=== PATIENT | male | born 1970 | race Caucasian/White ===

== ENCOUNTER 2021-07-15 13:25 | Inpatient (IN) ==
--- NOTE | 2021-07-15 14:49 | DR.GENAD ---
HPI Time Seen Time Seen by Provider: 07/15/21 14:13 PCP Primary Care Physician: EZIO Complaint/Symptoms Chief Complaint Doctors Comments: 50 y/o male tested + for Covid 4 days ago. Has been ill for 8 days. Feeling worse. Having cough, productive of slight white sputum. + diffuse body aches. + shortness of breath, worse with exertion. + fever, chills. No vaccines. was treated with a zpak. Chief Complaint:: PATIENT CAME TO ER REPORTS TESTING POSITIVE FOR COVID ON FRIDAY, WORSENING TODAY. PATIENT CURRENTLY TAKING VIT C, ZINC, MELATONIN, FLONASE, LOW DOSE ASPIRIN COVID-19 Coronavirus risk:travel/contact w/high risk person: Yes Has patient experienced Coronavirus symptoms: Yes Coronavirus symptoms experienced: Fever, Coughing and Shortness of Breath Nurses notes reviewed Nurses Notes Review: Yes Source History Provided: Patient Mode of Arrival Mode of Arrival: Ambulatory Timing Onset of Chief Complaint: 07/08/21 Came on: Gradually Duration Duration: Since Onset How lon Duration: Days Severity Severity: Moderate Modifying Factors Worsens:: exertion Improves:: nothing PMH PMH Past Medical History: No Past Surgical History: Yes Past Surgical History Comment: BILATERAL LEGS FOR FX, RIGHT ROTATOR CUFF Family History History of Family Medical Conditions: No Travel Risk Coronavirus risk:travel/contact w/high risk person: Yes Has patient experienced Coronavirus symptoms: Yes Coronavirus symptoms experienced: Fever, Coughing and Shortness of Breath Infectious screening In the last 2 months have you had wt loss of >10#?: NO Have you had fever, night sweats or hemotysis?: No Have you traveled outside the country in the last 6 months?: No Isolation: Standard ROS Review of Systems Constitutional: Chills, Fever, Malaise and Weakness Eyes: No Symptoms Reported ENTM: No Symptoms Reported Respiratoy: Productive Cough and Short of Breath Cardiovascular: No Symptoms Reported Gastrointestinal/Abdominal: No Symptoms Reported Genitourinary: No Symptoms Reported Neurological: Headache and Weakness Musculoskeletal: Muscle Pain Integumentary: No Symptoms Reported Hematologic/Lymphatic: No Symptoms Reported Endocrine: No Symptoms Reported Psychiatric: No Symptoms Reported All Other Systems: Reviewed and Negative PE Vital Signs Vitals: Temperature 98.8 F Pulse Rate [Left Brachial] 85 Pulse Rate 115 Respiratory Rate 20 Blood Pressure [Left Arm] 97/56 Blood Pressure 128/83 O2 Sat by Pulse Oximetry 97 General Limitations: No Limitations General Appearance: Alert and In Distress Head Head Exam: Normal Inspection Eyes Eye exam: Normal Appearance ENT ENT Exam: Normal Exam Throat Exam: Normal Inspection Neck Neck Exam: Normal Inspection and Full ROM; negative Meningismus Chest Chest Inspection: Normal Inspection Respiratory Respiratory Exam: Normal Lung Sounds Bilat and Accessory Muscle Use; negative Respiratory Distress Respiratory Exam: Bilateral: Clear to Auscultation Cardiovascular Cardiovascular Exam: Regular Rate, Normal Rhythm and Normal Heart Sounds Abdominal Exam Abdominal Exam: Normal Inspection and Normal Bowel Sounds; negative Tenderness Extremities Extremities Exam: Normal Inspection and Full ROM; negative Edema Back Back Exam: Normal Inspection Neurologic Neurological Exam: Alert, Oriented X3 and CN II-XII Intact; negative Motor Sensory Deficit Psychiatric Psychiatric Exam: Normal Affect Skin Skin Exam: Warm MDM Differential Diagnosis Differential Diagnosis: covid pneumonia, bacterial pneumonia, electrolyte abnormalities COURSE Treatment Treatment: 50 y/o male ill with covid x 8 days, feeling worse. Pulse ox 93% on RA. W/u initiated. 1920 - Pt with covid pneumonia on CXR. Is hypoxic on RA, ABG shows degree of acidosis, pH 7.29, and a low pO2 at 67, with a pulse ox of 90%. Doing better on O2. Recommend admission, discussed with Dr. Fong, accepts the admission. ROR Labs Reviewed Laboratory Results Reviewed?: Yes Result Diagrams: 07/15/21 15:52 07/15/21 15:52 Laboratory: WBC 6.2 X10^3/uL (3.6-10.0) 07/15/21 15:52 RBC 4.61 X10^6/uL (4.7-6.0) L 07/15/21 15:52 Hgb 14.5 g/dL (13.5-18.0) 07/15/21 15:52 Hct 41.8 % (42.0-54.0) L 07/15/21 15:52 MCV 90.6 fL (80.0-100.0) 07/15/21 15:52 MCH 31.4 pg (27.0-34.0) 07/15/21 15:52 MCHC 34.7 g/dL (33.0-35.0) 07/15/21 15:52 RDW 12.8 % (11.6-16.5) 07/15/21 15:52 Plt Count 158 X10^3/uL (150.0-450.0) 07/15/21 15:52 MPV 9.1 fL (7.4-11.0) 07/15/21 15:52 Neut % (Auto) 75.0 % (42.0-75.0) 07/15/21 15:52 Lymph % (Auto) 17.7 % (21.0-51.0) L 07/15/21 15:52 [place] % (Auto) 6.7 % (0.0-13.0) 07/15/21 15:52 Eos % (Auto) 0.1 % (0.9-2.9) L 07/15/21 15:52 Baso % (Auto) 0.5 % (0.2-1.0) 07/15/21 15:52 Neut # (Auto) 4.6 x10^3/uL (2.2-4.8) 07/15/21 15:52 Lymph # (Auto) 1.1 X10^3/uL (1.3-2.9) L 07/15/21 15:52 [place] # (Auto) 0.4 x10^3/uL (0.3-0.8) 07/15/21 15:52 Eos # (Auto) 0.0 x10^3/uL (0.0-0.2) 07/15/21 15:52 Baso # (Auto) 0.0 X10^3/uL (0.0-0.1) 07/15/21 15:52 Absolute Nucleated RBC 0.1 /100WBC 07/15/21 15:52 Sample Site Left brachial 07/15/21 16:58 ABG pH 7.290 (7.35-7.45) L 07/15/21 16:58 ABG pCO2 33.0 mmHg (35.0-45.0) L 07/15/21 16:58 ABG pO2 67.0 mmHg (80.0-100.0) L 07/15/21 16:58 ABG HCO3 15.9 mmol/L (22-26) L* 07/15/21 16:58 ABG O2 Saturation 90.0 % (90-100) 07/15/21 16:58 ABG Base Excess -9.7 mmol/L (-2.0-2.0) L 07/15/21 16:58 Hany Test Na 07/15/21 16:58 A-a Gradient 41.0 mmHg 07/15/21 16:58 FiO2 21.0 07/15/21 16:58 Blood Gas Comments Marianna well aw 07/15/21 16:58 Sodium 134 mmol/L (136-145) L 07/15/21 15:52 Corrected Sodium 135 mmol/L (136-145) L 07/15/21 15:52 Potassium 4.0 mmol/L (3.5-5.1) 07/15/21 15:52 Chloride 97 mmol/L (98-107) L 07/15/21 15:52 Carbon Dioxide 30.1 mmol/L (21-32) 07/15/21 15:52 BUN 10 mg/dL (7-18) 07/15/21 15:52 Creatinine 1.16 mg/dL (0.70-1.30) 07/15/21 15:52 Est GFR (MDRD) Af Amer > 60 (>60) 07/15/21 15:52 Est GFR (MDRD) Non-Af > 60 (>60) 07/15/21 15:52 Glucose 126 mg/dL (65-99) H 07/15/21 15:52 Calcium 7.9 mg/dL (8.5-10.1) L 07/15/21 15:52 Corrected Calcium 8.9 mg/dL (8.5-10.1) 07/15/21 15:52 Total Bilirubin 0.40 mg/dL (0.2-1.0) 07/15/21 15:52 AST 48 Units/L (15-37) H 07/15/21 15:52 ALT 33 Units/L (12-78) 07/15/21 15:52 Alkaline Phosphatase 62 Units/L (46-116) 07/15/21 15:52 Creatine Kinase 104 Units/L (39-308) 07/15/21 15:52 CK-MB (CK-2) < 1.0 ng/mL (0-4.0) 07/15/21 15:52 CK/CKMB % Calc 1.0 % (<4) 07/15/21 15:52 Troponin I < 0.02 ng/mL (0-1.5) 07/15/21 15:52 Total Protein 7.2 g/dL (6.4-8.2) 07/15/21 15:52 Albumin 2.8 g/dL (3.4-5.0) L 07/15/21 15:52 Globulin 4.4 g/dL (2.5-4.5) 07/15/21 15:52 Albumin/Globulin Ratio 0.6 Ratio (1.1-2.1) L 07/15/21 15:52 SARS CoV-2 RNA Rapid GUILLERMO Positive (NEGATIVE) A 07/15/21 16:47 XRAY XRAY Interpreted by: Radiologist X-ray Results: + changes c/w early viral pneumonia EKG Rate: 91 [place]: Normal Rhythm: NSR Block: IVCD (LAFB) Hypertrophy: LAE ST: Normal Opioid Opioid Risk Tool Age (Dio box if 16-45): No History of Preadolescent Sexual Abuse: No Total: 0 Total Score Risk Category: Low Risk Copyright: Alejo SILVA predicting aberrant behaviors Diagnosis Discharge Problem: Pneumonia due to COVID-19 virus, Hypoxia
[2021-07-15] MEDS ORDERED: NS 1000 ML 1,000 ML IV ONE (15:43)
[2021-07-15] MEDS ORDERED: TORADOL 30 MG VIAL IVP ONE (15:44)
[2021-07-15] MEDS ORDERED: NS 1000 ML 1,000 ML ONE ×2 (15:55→20:02)
[2021-07-15] MEDS ORDERED: TORADOL 30 MG VIAL ONE (15:55)
[2021-07-15 16:00] LABS: BASOPHILS % (AUTO) 0.5 % (0.2-1.0); EOSINOPHILS % (AUTO) 0.1 % (0.9-2.9); HEMATOCRIT 41.8 % (42.0-54.0); HEMOGLOBIN 14.5 g/dL (13.5-18.0); LYMPHOCYTES # (AUTO) 1.1 X10^3/uL (1.3-2.9); LYMPHOCYTES % (AUTO) 17.7 % (21.0-51.0); MEAN CORPUSCULAR HEMOGLOBIN 31.4 pg (27.0-34.0); MEAN CORPUSCULAR HGB CONC 34.7 g/dL (33.0-35.0); MEAN CORPUSCULAR VOLUME 90.6 fL (80.0-100.0); MEAN PLATELET VOLUME 9.1 fL (7.4-11.0); MONOCYTES # (AUTO) 0.4 x10^3/uL (0.3-0.8); MONOCYTES % (AUTO) 6.7 % (0.0-13.0); NEUTROPHILS # (AUTO) 4.6 x10^3/uL (2.2-4.8); PLATELET COUNT 158 X10^3/uL (150.0-450.0); RED BLOOD COUNT 4.61 X10^6/uL (4.7-6.0); RED CELL DISTRIBUTION WIDTH 12.8 % (11.6-16.5); WHITE BLOOD COUNT 6.2 X10^3/uL (3.6-10.0)
--- NOTE | 2021-07-15 16:13 | RAD ---
HISTORYcovid, body aches, sobSTUDYCHEST, 1 VIEWCOMPARISONNone availableTECHNIQUEChest radiographic imaging, AP portable projection, 1 imageFINDINGSNo cardiomegaly.Bilateral diffuse airspace opacities; most significant along the peripheral margins of both lungs.No pleural effusion.No pneumothorax.No acute osseous abnormality.IMPRESSIONBilateral diffuse airspace opacities; most significant along the peripheral margins of both lungs. Findings are consistent with the sequela of a COVID-19 respiratory infection.Electronically signed by: Francisco Lindsay (Jul 15, 2021 16:10:56)
[2021-07-15 16:33] LABS: ALANINE AMINOTRANSFERASE 33 Units/L (12-78); ALBUMIN 2.8 g/dL (3.4-5.0); ALKALINE PHOSPHATASE 62 Units/L (46-116); ASPARTATE AMINO TRANSFERASE 48 Units/L (15-37); BLOOD UREA NITROGEN 10 mg/dL (7-18); CALCIUM 7.9 mg/dL (8.5-10.1); CARBON DIOXIDE 30.1 mmol/L (21-32); CHLORIDE 97 mmol/L (98-107); COR CA(FOR HYPOALB) 8.9 mg/dL (8.5-10.1); COR NA(FOR HYPERGLY) 135 mmol/L (136-145); CREATINE KINASE 104 Units/L (39-308); CREATINE KINASE MB < 1.0 ng/mL (0-4.0); CREATININE 1.16 mg/dL (0.70-1.30); SODIUM 134 mmol/L (136-145); TOTAL PROTEIN 7.2 g/dL (6.4-8.2); TROPONIN I < 0.02 ng/mL (0-1.5); eGFR NON BLACK RACES > 60 (>60)
--- NOTE | 2021-07-15 16:37 | RAD ---
HISTORYstool incontinenceSTUDYKUBCOMPARISONNoneTECHNIQUEAP supine projection, 3 imagesFINDINGSGas and stool in non -distended colon.Gas in scattered loops of non-distended small bowel in the left abdomen.No gross andrew e air.No abnormal calcifications.No acute osseous abnormality.IMPRESSION1. No acute intra-abdominal a bnormality detected.2. No significant stool burden in the colon.Electronically signed by: Francisco ramires (Jul 15, 2021 16:34:18)
[2021-07-15 17:03] LABS: ABG BASE EXCESS -9.7 mmol/L (-2.0-2.0)
[2021-07-15 17:04] LABS: ABG HCO3 15.9 mmol/L (22-26)
[2021-07-15] MEDS ORDERED: REMDESIVIR 200 MG in NS 250 ML IV 250 ML IV ONE (19:57)
[2021-07-15] MEDS ORDERED: NS 250 ML IV 250 ML IV ONE (20:02)
[2021-07-15] MEDS ORDERED: REMDESIVIR IV ONE (20:02)
[2021-07-15] MEDS: NS 1000 ML 1,000 ML IV SCH (20:10)
[2021-07-15] MEDS: ZINC SULFATE PO SCH (21:00)
[2021-07-15] MEDS: SOLU-Medrol 40 MG VIAL IVP SCH (21:00)
[2021-07-15] MEDS: LOVENOX INJ 30 MG SYR SC SCH (21:00)
[2021-07-15] MEDS: PEPCID TAB 40 MG PO SCH (21:00)
[2021-07-15] MEDS: VIBRAMYCIN PO SCH (21:00)
[2021-07-15 21:02] LABS: BASOPHILS % (AUTO) 0.5 % (0.2-1.0); EOSINOPHILS % (AUTO) 0.1 % (0.9-2.9); HEMATOCRIT 37.4 % (42.0-54.0); LYMPHOCYTES # (AUTO) 1.7 X10^3/uL (1.3-2.9); MEAN CORPUSCULAR HEMOGLOBIN 31.8 pg (27.0-34.0); MEAN CORPUSCULAR HGB CONC 34.7 g/dL (33.0-35.0); MEAN CORPUSCULAR VOLUME 91.7 fL (80.0-100.0); MEAN PLATELET VOLUME 9.3 fL (7.4-11.0); MONOCYTES # (AUTO) 0.5 x10^3/uL (0.3-0.8); MONOCYTES % (AUTO) 8.3 % (0.0-13.0); NEUTROPHILS # (AUTO) 3.7 x10^3/uL (2.2-4.8); NEUTROPHILS % (AUTO) 63.1 % (42.0-75.0); PLATELET COUNT 143 X10^3/uL (150.0-450.0); RED BLOOD COUNT 4.07 X10^6/uL (4.7-6.0); WHITE BLOOD COUNT 5.9 X10^3/uL (3.6-10.0)
[2021-07-15 21:12] LABS: ALANINE AMINOTRANSFERASE 28 Units/L (12-78); ALBUMIN 2.4 g/dL (3.4-5.0); ALKALINE PHOSPHATASE 54 Units/L (46-116); ASPARTATE AMINO TRANSFERASE 41 Units/L (15-37); BLOOD UREA NITROGEN 14 mg/dL (7-18); CALCIUM 7.3 mg/dL (8.5-10.1); CARBON DIOXIDE 27.9 mmol/L (21-32); CHLORIDE 98 mmol/L (98-107); COR CA(FOR HYPOALB) 8.6 mg/dL (8.5-10.1); COR NA(FOR HYPERGLY) 136 mmol/L (136-145); CREATININE 1.41 mg/dL (0.70-1.30); SODIUM 133 mmol/L (136-145); TOTAL PROTEIN 6.1 g/dL (6.4-8.2); TROPONIN I < 0.02 ng/mL (0-1.5); eGFR NON BLACK RACES 57 (>60)
[2021-07-15 21:43] VITALS: BMI 33.7
[2021-07-15] MEDS: BROVANA IN SCH (21:45)
[2021-07-15] MEDS: PULMICORT NEB TX 0.5 MG NEB SCH (21:45)
[2021-07-15] MEDS: ASCORBIC ACID INJ MULTI-DOSE VIAL 1,500 MG in NS 100 ML IV 100 ML IV SCH (23:00)
[2021-07-15] MEDS ORDERED: RESTORIL CAP 15 MG PO PRN (23:38)
[2021-07-16] MEDS: ASCORBIC ACID INJ MULTI-DOSE VIAL 1,500 MG in NS 100 ML IV 100 ML IV SCH ×4 (04:05→20:33)
[2021-07-16 06:24] LABS: BASOPHILS % (AUTO) 0.1 % (0.2-1.0); HEMATOCRIT 37.3 % (42.0-54.0); HEMOGLOBIN 13.1 g/dL (13.5-18.0); LYMPHOCYTES # (AUTO) 0.4 X10^3/uL (1.3-2.9); LYMPHOCYTES % (AUTO) 14.5 % (21.0-51.0); MEAN CORPUSCULAR HEMOGLOBIN 31.7 pg (27.0-34.0); MEAN CORPUSCULAR HGB CONC 35.1 g/dL (33.0-35.0); MEAN CORPUSCULAR VOLUME 90.3 fL (80.0-100.0); MEAN PLATELET VOLUME 9.6 fL (7.4-11.0); MONOCYTES # (AUTO) 0.1 x10^3/uL (0.3-0.8); MONOCYTES % (AUTO) 4.8 % (0.0-13.0); NEUTROPHILS # (AUTO) 2.3 x10^3/uL (2.2-4.8); NEUTROPHILS % (AUTO) 80.6 % (42.0-75.0); PLATELET COUNT 159 X10^3/uL (150.0-450.0); RED BLOOD COUNT 4.13 X10^6/uL (4.7-6.0); RED CELL DISTRIBUTION WIDTH 12.9 % (11.6-16.5); WHITE BLOOD COUNT 2.9 X10^3/uL (3.6-10.0)
[2021-07-16] MEDS: SOLU-Medrol 40 MG VIAL IVP SCH ×3 (06:25→21:45)
[2021-07-16 06:56] LABS: ALANINE AMINOTRANSFERASE 34 Units/L (12-78); ALBUMIN 2.6 g/dL (3.4-5.0); ALKALINE PHOSPHATASE 59 Units/L (46-116); ASPARTATE AMINO TRANSFERASE 45 Units/L (15-37); BLOOD UREA NITROGEN 12 mg/dL (7-18); CALCIUM 7.6 mg/dL (8.5-10.1); CARBON DIOXIDE 25.5 mmol/L (21-32); CHLORIDE 101 mmol/L (98-107); COR CA(FOR HYPOALB) 8.7 mg/dL (8.5-10.1); COR NA(FOR HYPERGLY) 140 mmol/L (136-145); CREATININE 1.09 mg/dL (0.70-1.30); SODIUM 136 mmol/L (136-145); TOTAL PROTEIN 6.7 g/dL (6.4-8.2); eGFR NON BLACK RACES > 60 (>60)
[2021-07-16] MEDS ORDERED: VITAMIN D (1.25MG) PO SCH (09:00)
[2021-07-16] MEDS ORDERED: VITAMIN A PO SCH (09:00)
[2021-07-16] MEDS: BROVANA IN SCH ×2 (09:00→20:59)
[2021-07-16] MEDS: PULMICORT NEB TX 0.5 MG NEB SCH ×2 (09:00→20:59)
[2021-07-16] MEDS: PEPCID TAB 40 MG PO SCH ×2 (09:32→20:35)
[2021-07-16] MEDS: ZINC SULFATE PO SCH ×2 (09:32→20:36)
[2021-07-16] MEDS: LOVENOX INJ 30 MG SYR SC SCH ×2 (09:32→20:35)
[2021-07-16] MEDS: VIBRAMYCIN PO SCH ×2 (09:33→20:34)
[2021-07-16] MEDS: TRICOR TAB 160 MG PO SCH (09:33)
--- NOTE | 2021-07-16 11:01 | RAD ---
HISTORYCOVID-19 pneumoniaSTUDYPortable AP [id number] normal heart size and contour with similar degree and dist ribution of bilateral pneumonic infiltrates. No additional consolidation, pneumothorax or pleural flu id identified.IMPRESSIONStable appearance of bilateral pneumonia.Electronically signed by: CHERISE MOREIRA (Jul 16, 2021 11:00:22)
[2021-07-16] MEDS ORDERED: NS 100 ML IV 100 ML ONE (12:49)
--- NOTE | 2021-07-16 13:41 | CT ---
HISTORYCOVID PNEUMONIA, SOB, ELEVATED D-DIMERSTUDYCTA CHESTCOMPARISONChest radiograph 07/16/2021TECHNIQUEMultiple CT axial images of the chest were obtained with IV contrast. Coronal and sagittal images were reconstructed. 3D reconstructions using axial MIPS imaging was performed and reviewed. Dose reduction techniques included Automated Exposure Control (AEC) and adjustment of mA and kV.Stenoses are measured using NASCET criteria.FINDINGSPulmonary arteries are identified to subsegmental branches. There are no pulmonary emboli.The heart is normal in size. Atherosclerotic calcifications are present in the coronary arteries. The pulmonary artery and aorta have a normal caliber. Mediastinal lymphadenopathy is likely reactive from the patient's lung disease.The thyroid has a normal size and configuration. No axillary mass or significant axillary lymphadenopathy is identified.Patchy bilateral areas of ground-glass opacity are present compatible with bronchopneumonia. No pleural effusion or pneumothorax.There is a focal area of increased density in the upper left abdomen which may be edema. This is centered around left adrenal gland. Few small lymph nodes are noted in the upper abdomen also. These may be reactive. The finding is nonspecific and could be chronic. But it is not centered around the pancreas like pancreatitis. Not centered around the kidney like pyelonephritis. In an acute setting it could be minimal adrenal hemorrhage if the patient has this history.Degenerative changes are present in the spine.IMPRESSION1. No pulmonary embolus2. Bronchopneumonia3. Nonspecific edema in the upper left abdomen, centered around the adrenal glandElectronically signed by: Ayaan Galloway (Jul 16, 2021 13:39:11)
[2021-07-16] MEDS: NS 1000 ML 1,000 ML IV SCH (20:32)
[2021-07-16] MEDS: NICOTINE PATCH TD SCH (22:22)
--- NOTE | 2021-07-16 23:19 | DR.H&P ---
H&P History & Physical for Day of: H&P Date: 07/16/21 Chief Complaint Chief Complaint: Fever, chills, Body aches Shortness of breath Allergies Allergies Allergy/AdvReac Type Severity Reaction Status Date / Time Penicillins Allergy Verified 07/15/21 13:33 History of Present Illness History of Present Illness: Pt is a 50 year old male with no past medical history presenting with fever, chills, body aches, abdominal pain, and shortness of breath for the past 4 days. He reports that symptoms have been gradually worsening. In the ED he was found to be hypoxic and started on supplemental oxygen. Labs/imaging: Wbc 2.9, Hgb 13.1, Plt 159, Na 136, K 4.4, Creatinine 1.09, Glucose 277, ABG: pH 7.29, pCO2 33, pO2 67, HCO3 15.9, O2 saturation 90% on room air. D-dimer 0.79, CRP 96, CXR: Stable appearance of bilateral pneumonia. KUB: 1. No acute intra-abdominal abnormality detected. 2. No significant stool burden in the colon. CTA of chest was obtained that revealed: 1. No pulmonary embolus. 2. Bronchopneumonia. 3. Nonspecific edema in the upper left abdomen, centered around the adrenal gland. Pt was started on pneumonia protocol that includes: IVF NS@KVO ml/h, Remdesivir, Solumedrol 80mg q8h, scheduled Bronchodilators, Antibiotics: IV Doxycycline 100mg BID, immune supporting supplements, supplemental O2, SSI, I/S, Respiratory therapy consult, Pneumonia protocol. Will wean/titrate supplemental oxygen as tolerated. Continue to monitor and follow up labs/imaging. Past Surgical History Surgical History: Ortho Surgery Social History Does patient currently use any type of tobacco product: Yes Have you used tobacco products in the last 12 months: Yes Type of Tobacco Use: Cigarettes How many years tobacco product used: 20 Alcohol Use: DAILY Drug Use: None Medications Home Medications: Penicillins Allergy (Verified 07/15/21 13:33) CONTINUE taking the following medications NK 07/15/21 [History] Labs Result Diagrams: 07/16/21 05:30 07/16/21 05:30 Labs: Laboratory WBC 2.9 X10^3/uL (3.6-10.0) L 07/16/21 05:30 RBC 4.13 X10^6/uL (4.7-6.0) L 07/16/21 05:30 Hgb 13.1 g/dL (13.5-18.0) L 07/16/21 05:30 Hct 37.3 % (42.0-54.0) L 07/16/21 05:30 MCV 90.3 fL (80.0-100.0) 07/16/21 05:30 MCH 31.7 pg (27.0-34.0) 07/16/21 05:30 MCHC 35.1 g/dL (33.0-35.0) H 07/16/21 05:30 RDW 12.9 % (11.6-16.5) 07/16/21 05:30 Plt Count 159 X10^3/uL (150.0-450.0) 07/16/21 05:30 MPV 9.6 fL (7.4-11.0) 07/16/21 05:30 Neut % (Auto) 80.6 % (42.0-75.0) H 07/16/21 05:30 Lymph % (Auto) 14.5 % (21.0-51.0) L 07/16/21 05:30 [place] % (Auto) 4.8 % (0.0-13.0) 07/16/21 05:30 Eos % (Auto) 0.0 % (0.9-2.9) L 07/16/21 05:30 Baso % (Auto) 0.1 % (0.2-1.0) L 07/16/21 05:30 Neut # (Auto) 2.3 x10^3/uL (2.2-4.8) 07/16/21 05:30 Lymph # (Auto) 0.4 X10^3/uL (1.3-2.9) L 07/16/21 05:30 [place] # (Auto) 0.1 x10^3/uL (0.3-0.8) L 07/16/21 05:30 Eos # (Auto) 0.0 x10^3/uL (0.0-0.2) 07/16/21 05:30 Baso # (Auto) 0.0 X10^3/uL (0.0-0.1) 07/16/21 05:30 Absolute Nucleated RBC 0.1 /100WBC 07/16/21 05:30 D-Dimer 0.79 ug/ml (0.0-0.57) H* 07/16/21 05:30 Sample Site Left brachial 07/15/21 16:58 ABG pH 7.290 (7.35-7.45) L 07/15/21 16:58 ABG pCO2 33.0 mmHg (35.0-45.0) L 07/15/21 16:58 ABG pO2 67.0 mmHg (80.0-100.0) L 07/15/21 16:58 ABG HCO3 15.9 mmol/L (22-26) L* 07/15/21 16:58 ABG O2 Saturation 90.0 % (90-100) 07/15/21 16:58 ABG Base Excess -9.7 mmol/L (-2.0-2.0) L 07/15/21 16:58 Hany Test Na 07/15/21 16:58 A-a Gradient 41.0 mmHg 07/15/21 16:58 FiO2 21.0 07/15/21 16:58 Blood Gas Comments Marianna well aw 07/15/21 16:58 Sodium 136 mmol/L (136-145) 07/16/21 05:30 Corrected Sodium 140 mmol/L (136-145) 07/16/21 05:30 Potassium 4.4 mmol/L (3.5-5.1) 07/16/21 05:30 Chloride 101 mmol/L (98-107) 07/16/21 05:30 Carbon Dioxide 25.5 mmol/L (21-32) 07/16/21 05:30 BUN 12 mg/dL (7-18) 07/16/21 05:30 Creatinine 1.09 mg/dL (0.70-1.30) 07/16/21 05:30 Est GFR (MDRD) Af Amer > 60 (>60) 07/16/21 05:30 Est GFR (MDRD) Non-Af > 60 (>60) 07/16/21 05:30 Glucose 277 mg/dL (65-99) H 07/16/21 05:30 Calcium 7.6 mg/dL (8.5-10.1) L 07/16/21 05:30 Corrected Calcium 8.7 mg/dL (8.5-10.1) 07/16/21 05:30 Total Bilirubin 0.50 mg/dL (0.2-1.0) 07/16/21 05:30 AST 45 Units/L (15-37) H 07/16/21 05:30 ALT 34 Units/L (12-78) 07/16/21 05:30 Alkaline Phosphatase 59 Units/L (46-116) 07/16/21 05:30 Creatine Kinase 104 Units/L (39-308) 07/15/21 15:52 CK-MB (CK-2) < 1.0 ng/mL (0-4.0) 07/15/21 15:52 CK/CKMB % Calc 1.0 % (<4) 07/15/21 15:52 Troponin I < 0.02 ng/mL (0-1.5) 07/15/21 20:46 C-Reactive Protein 96.50 mg/L (0-3.0) H 07/16/21 05:30 Total Protein 6.7 g/dL (6.4-8.2) 07/16/21 05:30 Albumin 2.6 g/dL (3.4-5.0) L 07/16/21 05:30 Globulin 4.1 g/dL (2.5-4.5) 07/16/21 05:30 Albumin/Globulin Ratio 0.6 Ratio (1.1-2.1) L 07/16/21 05:30 SARS CoV-2 RNA Rapid GUILLERMO Positive (NEGATIVE) A 07/15/21 16:47 Review of Systems Constitutional: Fever, Chills and Weakness Eyes: No Symptoms Reported ENT: No Symptoms Reported Respiratory: Cough, Shortness of Breath and Wheezing Cardiovascular: No Symptoms Reported Gastrointestinal: No Symptoms Reported Genitourinary: No Symptoms Reported Musculoskeletal: No Symptoms Reported Skin: No Symptoms Reported Neurological: No Symptoms Reported Physical Exam Vital Signs: Temperature 98.1 F Pulse Rate [Left Brachial] 88 Pulse Rate 92 Respiratory Rate 21 Blood Pressure [Left Arm] 133/93 Blood Pressure 128/83 O2 Sat by Pulse Oximetry 97 Oriented: Normal Eyes: Normal Ear: Normal Nose: Normal Throat: Normal Respiratory: Diminished Throughout, Rhonchi Throughout and Rales Throughout Cardiovascular: Normal : Normal Auscultation: Bowel Sounds: Normal Palpation: Normal Tenderness: Normal Skin: Normal Musculoskeletal: Normal Psychiatric: Normal Mood Description: Calm and Appropriate Affect: Normal Speech Pattern: Clear and Appropriate Assessment/Plan (1) Pneumonia due to COVID-19 virus: Status: Acute Plan: pneumonia protocol (2) Hypoxia: Status: Acute Review H&P Reviewed: Yes Patient was examined?: Yes
[2021-07-17] MEDS: ASCORBIC ACID INJ MULTI-DOSE VIAL 1,500 MG in NS 100 ML IV 100 ML IV SCH ×2 (03:05→08:52)
[2021-07-17] MEDS: SOLU-Medrol 40 MG VIAL IVP SCH ×2 (05:51→14:33)
[2021-07-17 06:23] LABS: BASOPHILS % (AUTO) 0.2 % (0.2-1.0); HEMATOCRIT 39.1 % (42.0-54.0); HEMOGLOBIN 13.4 g/dL (13.5-18.0); LYMPHOCYTES # (AUTO) 1.2 X10^3/uL (1.3-2.9); LYMPHOCYTES % (AUTO) 16.6 % (21.0-51.0); MEAN CORPUSCULAR HEMOGLOBIN 31.2 pg (27.0-34.0); MEAN CORPUSCULAR HGB CONC 34.3 g/dL (33.0-35.0); MEAN CORPUSCULAR VOLUME 90.9 fL (80.0-100.0); MEAN PLATELET VOLUME 9.6 fL (7.4-11.0); MONOCYTES # (AUTO) 0.9 x10^3/uL (0.3-0.8); MONOCYTES % (AUTO) 11.7 % (0.0-13.0); NEUTROPHILS # (AUTO) 5.3 x10^3/uL (2.2-4.8); NEUTROPHILS % (AUTO) 71.5 % (42.0-75.0); PLATELET COUNT 194 X10^3/uL (150.0-450.0); RED BLOOD COUNT 4.29 X10^6/uL (4.7-6.0); RED CELL DISTRIBUTION WIDTH 12.7 % (11.6-16.5); WHITE BLOOD COUNT 7.4 X10^3/uL (3.6-10.0)
[2021-07-17 06:38] LABS: ALANINE AMINOTRANSFERASE 47 Units/L (12-78); ALBUMIN 2.5 g/dL (3.4-5.0); ALKALINE PHOSPHATASE 59 Units/L (46-116); ASPARTATE AMINO TRANSFERASE 53 Units/L (15-37); BLOOD UREA NITROGEN 16 mg/dL (7-18); CALCIUM 8.2 mg/dL (8.5-10.1); CARBON DIOXIDE 25.3 mmol/L (21-32); CHLORIDE 102 mmol/L (98-107); COR CA(FOR HYPOALB) 9.4 mg/dL (8.5-10.1); COR NA(FOR HYPERGLY) 143 mmol/L (136-145); CREATININE 0.99 mg/dL (0.70-1.30); SODIUM 137 mmol/L (136-145); TOTAL PROTEIN 6.6 g/dL (6.4-8.2); eGFR NON BLACK RACES > 60 (>60)
--- NOTE | 2021-07-17 07:48 | RAD ---
HISTORYPNEUMONIA F/USTUDYCHEST, 1 [id number] bilateral areas of opacity represents bronchopneumonia. Findings are not changed significantly.No pleural effusion or pneumothorax.Heart size is normal.Bones are unremarkable.IMPRESSION1. Unchanged bronchopneumoniaElectronically signed by: Ayaan Galloway (Jul 17, 2021 07:46:32)
[2021-07-17] MEDS ORDERED: HumuLIN R SC PRN (08:10)
[2021-07-17] MEDS ORDERED: NS 50 ML IV 50 ML IV ONE (08:26)
[2021-07-17] MEDS: NICOTINE PATCH TD SCH (08:53)
[2021-07-17] MEDS: TRICOR TAB 160 MG PO SCH (08:53)
[2021-07-17] MEDS: VIBRAMYCIN PO SCH (08:53)
[2021-07-17] MEDS: PEPCID TAB 40 MG PO SCH (08:54)
[2021-07-17] MEDS ORDERED: VITAMIN D3 125 mcg (5,000 UNITS) PO SCH (09:00)
[2021-07-17] MEDS: BROVANA IN SCH (09:05)
[2021-07-17] MEDS: PULMICORT NEB TX 0.5 MG NEB SCH (09:05)
--- NOTE | 2021-07-17 11:23 | W.DIS.FURT ---
Summary of Discharge Discharge Summary of Date Date of Exam: 07/17/21 Admission Date Date of Admission: 07/15/21 Admission Diagnosis Patient Problems (Updated 07/15/21 @ 20:16 by Prosper Strange) Pneumonia due to COVID-19 virus (Acute) U07.1, J12.82 Hypoxia (Acute) R09.02 Hospital Course: Pt is a 50 year old male with no past medical history admitted for COVID-19 pneumonia. He was started on pneumonia protocol that includes: IVF NS@KVO ml/h, Remdesivir, Solumedrol 80mg q8h, scheduled Bronchodilators, Antibiotics: IV Doxycycline 100mg BID, immune supporting supplements, supplemental O2, SSI, I/S, Respiratory therapy consult, Pneumonia protocol. Labs/imaging: Wbc 7.4, Hgb 13.4, Plt 194, Na 137, K 4.2, Creatinine 0.99, Glucose 336, D-dimer 0.79, CRP 53, CXR: Stable appearance of bilateral pneumonia. CTA of chest was obtained that revealed: 1. No pulmonary embolus. 2. Bronchopneumonia. 3. Nonspecific edema in the upper left abdomen, centered around the adrenal gland. A1c was also obtained, result 7.7, that revealed he is diabetic, will need to follow up outpatient with pcp. Pt responded well to treatments and was on room air on examination. Ambulatory walk test determined he qualified for home oxygen of 2L nasal cannula. Rx doxycycline and prednisone. Pt discharged in stable condition. Instructed to follow up with pcp in 3-5 days. Vital Signs: Vital Signs (72 hours) 07/15/21 13:37 07/15/21 16:03 07/15/21 19:52 Temperature 98.7 F 98.8 F Pulse Rate 115 H Pulse Rate [Left Brachial] 85 Respiratory Rate 20 20 20 Blood Pressure 128/83 Blood Pressure [Left Arm] 97/56 O2 Sat by Pulse Oximetry 93 L 97 07/15/21 20:25 07/15/21 21:45 07/16/21 00:00 Temperature 98.2 F 99.9 F H Pulse Rate 92 H Pulse Rate [Left Brachial] 71 96 H Respiratory Rate 23 26 H Blood Pressure Blood Pressure [Left Arm] 136/81 136/91 O2 Sat by Pulse Oximetry 98 93 L 94 L 07/16/21 04:00 07/16/21 08:00 07/16/21 12:00 Temperature 98.3 F 98.1 F 98.2 F Pulse Rate Pulse Rate [Left Brachial] 90 95 H 93 H Respiratory Rate 21 21 19 Blood Pressure Blood Pressure [Left Arm] 132/73 142/88 144/90 O2 Sat by Pulse Oximetry 95 97 97 07/16/21 16:00 07/16/21 20:00 07/16/21 20:59 Temperature 98.1 F 97.5 F L Pulse Rate 90 Pulse Rate [Left Brachial] 88 92 H Respiratory Rate 21 18 Blood Pressure Blood Pressure [Left Arm] 133/93 129/71 O2 Sat by Pulse Oximetry 97 95 91 L 07/17/21 00:00 07/17/21 04:00 Temperature 97.5 F L 97.8 F Pulse Rate Pulse Rate [Left Brachial] 86 87 Respiratory Rate 18 20 Blood Pressure Blood Pressure [Left Arm] 135/92 149/92 O2 Sat by Pulse Oximetry 96 96 Labs: Laboratory Last Values WBC 7.4 X10^3/uL (3.6-10.0) 07/17/21 05:20 RBC 4.29 X10^6/uL (4.7-6.0) L 07/17/21 05:20 Hgb 13.4 g/dL (13.5-18.0) L 07/17/21 05:20 Hct 39.1 % (42.0-54.0) L 07/17/21 05:20 MCV 90.9 fL (80.0-100.0) 07/17/21 05:20 MCH 31.2 pg (27.0-34.0) 07/17/21 05:20 MCHC 34.3 g/dL (33.0-35.0) 07/17/21 05:20 RDW 12.7 % (11.6-16.5) 07/17/21 05:20 Plt Count 194 X10^3/uL (150.0-450.0) 07/17/21 05:20 MPV 9.6 fL (7.4-11.0) 07/17/21 05:20 Neut % (Auto) 71.5 % (42.0-75.0) 07/17/21 05:20 Lymph % (Auto) 16.6 % (21.0-51.0) L 07/17/21 05:20 [place] % (Auto) 11.7 % (0.0-13.0) 07/17/21 05:20 Eos % (Auto) 0.0 % (0.9-2.9) L 07/17/21 05:20 Baso % (Auto) 0.2 % (0.2-1.0) 07/17/21 05:20 Neut # (Auto) 5.3 x10^3/uL (2.2-4.8) H 07/17/21 05:20 Lymph # (Auto) 1.2 X10^3/uL (1.3-2.9) L 07/17/21 05:20 [place] # (Auto) 0.9 x10^3/uL (0.3-0.8) H 07/17/21 05:20 Eos # (Auto) 0.0 x10^3/uL (0.0-0.2) 07/17/21 05:20 Baso # (Auto) 0.0 X10^3/uL (0.0-0.1) 07/17/21 05:20 Absolute Nucleated RBC 0.1 /100WBC 07/17/21 05:20 D-Dimer 0.79 ug/ml (0.0-0.57) H* 07/16/21 05:30 Sample Site Left brachial 07/15/21 16:58 ABG pH 7.290 (7.35-7.45) L 07/15/21 16:58 ABG pCO2 33.0 mmHg (35.0-45.0) L 07/15/21 16:58 ABG pO2 67.0 mmHg (80.0-100.0) L 07/15/21 16:58 ABG HCO3 15.9 mmol/L (22-26) L* 07/15/21 16:58 ABG O2 Saturation 90.0 % (90-100) 07/15/21 16:58 ABG Base Excess -9.7 mmol/L (-2.0-2.0) L 07/15/21 16:58 Hany Test Na 07/15/21 16:58 A-a Gradient 41.0 mmHg 07/15/21 16:58 FiO2 21.0 07/15/21 16:58 Blood Gas Comments Marianna well aw 07/15/21 16:58 Sodium 137 mmol/L (136-145) 07/17/21 05:20 Corrected Sodium 143 mmol/L (136-145) 07/17/21 05:20 Potassium 4.2 mmol/L (3.5-5.1) 07/17/21 05:20 Chloride 102 mmol/L (98-107) 07/17/21 05:20 Carbon Dioxide 25.3 mmol/L (21-32) 07/17/21 05:20 BUN 16 mg/dL (7-18) 07/17/21 05:20 Creatinine 0.99 mg/dL (0.70-1.30) 07/17/21 05:20 Est GFR (MDRD) Af Amer > 60 (>60) 07/17/21 05:20 Est GFR (MDRD) Non-Af > 60 (>60) 07/17/21 05:20 Glucose 336 mg/dL (65-99) H 07/17/21 05:20 Hemoglobin A1c 7.7 % 07/17/21 05:20 Calcium 8.2 mg/dL (8.5-10.1) L 07/17/21 05:20 Corrected Calcium 9.4 mg/dL (8.5-10.1) 07/17/21 05:20 Total Bilirubin 0.40 mg/dL (0.2-1.0) 07/17/21 05:20 AST 53 Units/L (15-37) H 07/17/21 05:20 ALT 47 Units/L (12-78) 07/17/21 05:20 Alkaline Phosphatase 59 Units/L (46-116) 07/17/21 05:20 Creatine Kinase 104 Units/L (39-308) 07/15/21 15:52 CK-MB (CK-2) < 1.0 ng/mL (0-4.0) 07/15/21 15:52 CK/CKMB % Calc 1.0 % (<4) 07/15/21 15:52 Troponin I < 0.02 ng/mL (0-1.5) 07/15/21 20:46 C-Reactive Protein 53.30 mg/L (0-3.0) H 07/17/21 05:20 Total Protein 6.6 g/dL (6.4-8.2) 07/17/21 05:20 Albumin 2.5 g/dL (3.4-5.0) L 07/17/21 05:20 Globulin 4.1 g/dL (2.5-4.5) 07/17/21 05:20 Albumin/Globulin Ratio 0.6 Ratio (1.1-2.1) L 07/17/21 05:20 SARS CoV-2 RNA Rapid GUILLERMO Positive (NEGATIVE) A 07/15/21 16:47 Reason For Visit: COVID PNEUMONIA, HYPOXIA Discharge Date Discharge Date: 07/17/21 Discharge Diagnosis All Active Problems (Updated 07/15/21 @ 20:16 by Prosper Strange) Pneumonia due to COVID-19 virus (Acute) Hypoxia (Acute) Plan of Treatment: Continue with present treatment and follow up plan. Pt is to keep follow up appointment as instructed and take medications as ordered. Discharge Medications Discharge Medications: Penicillins Allergy (Verified 07/15/21 13:33) New Prescriptions doxycycline hyclate 100 mg PO BID 7 Days #14 cap 07/17/21 [Rx] prednisone 40 mg PO DAILY 5 Days #10 tab 07/17/21 [Rx] Follow up and Referral Follow Up: 1 Week Discharge Disposition Discharge Disposition: Home Discharge Condition: Stable Discharge Plan Discharge Plan Hospital Course: Pt is a 50 year old male with no past medical history admitted for COVID-19 pneumonia. He was started on pneumonia protocol that includes: IVF NS@KVO ml/h, Remdesivir, Solumedrol 80mg q8h, scheduled Bronchodilators, Antibiotics: IV Doxycycline 100mg BID, immune supporting supplements, supplemental O2, SSI, I/S, Respiratory therapy consult, Pneumonia protocol. Labs/imaging: Wbc 7.4, Hgb 13.4, Plt 194, Na 137, K 4.2, Creatinine 0.99, Glucose 336, D-dimer 0.79, CRP 53, CXR: Stable appearance of bilateral pneumonia. CTA of chest was obtained that revealed: 1. No pulmonary embolus. 2. Bronchopneumonia. 3. Nonspecific edema in the upper left abdomen, centered around the adrenal gland. A1c was also obtained, result 7.7, that revealed he is diabetic, will need to follow up outpatient with pcp. Pt responded well to treatments and was on room air on exa mination. Ambulatory walk test determined he qualified for home oxygen of 2L nasal cannula. Rx doxycycline and prednisone. Pt discharged in stable condition. Instructed to follow up with pcp in 3-5 days. Patient Disposition: 01 HOME, SELF-CARE Condition: Stable Health Concerns: Post Hospitalization: new medications and changes needed to prevent readmission or further decline. Pt educated and given instructions on all concerns. Care Plan Goals: Problem: Respiratory Complications Goal: Improved Uncomplicated Respiratory Status Instructions: Follow provided instructions. Follow up with primary physician as directed. Contact primary care physician or report to the closest Emergency Room if condition worsens. Plan of Treatment: Continue with present treatment and follow up plan. Pt is to keep follow up appointment as instructed and take medications as ordered. Prescriptions: New doxycycline hyclate 100 mg Capsule 100 mg PO BID 7 Days Qty: 14 RF: 0 prednisone 20 mg tablet 40 mg PO DAILY 5 Days Qty: 10 RF: 0 No Action ascorbic acid (vitamin C) [Vitamin C] 500 mg tablet 1,000 mg PO BID RF: 0 melatonin 3 mg tablet 6 mg PO HS RF: 0 aspirin 81 mg tablet,delayed release (DR/EC) 81 mg PO HS RF: 0 zinc gluconate 50 mg tablet 50 mg PO DAILY RF: 0 fluticasone propionate 50 mcg/actuation spray,suspension 1 spray INTRANASAL HS PRNRF: 0 loratadine 10 mg tablet 10 mg PO DAILY RF: 0 Follow ups/Referrals Follow ups/Referrals: [facility] [Other] (Home Oxygen Supplies) Pratik Fong [STAFF PHYSICIAN] - 07/26/21 1:00 pm Instructions Instructions: Incentive Spirometer, Viral Respiratory Infection, [id number], Home Oxygen Use, Adult, Steps to Quit Smoking, [id number], Hypoxia, Community- Acquired Pneumonia, Adult, [id number] Stand Alone Forms: Excuse From Work or School, Precautions for COVID19, [facility], Patient Portal, Social Distancing
[2021-07-17] MEDS: ZINC SULFATE PO SCH (11:58)
[2021-07-17] MEDS: LOVENOX INJ 30 MG SYR SC SCH (12:34)
[2021-07-17 18:06] VITALS: BP 156/93
== END 2021-07-17 14:30 | disposition home or self-care (01) | DRG 177 ==
LOC: ER 13:31 → MED/SURG 20:19
PROVIDERS: ADMIT Family Medicine; ATTEND Family Medicine
DX: R94.31 Abnormal electrocardiogram [ECG] [EKG]; J12.82 Pneumonia due to coronavirus disease 2019; R09.02 Hypoxemia; E11.65 Type 2 diabetes mellitus with hyperglycemia; R79.82 Elevated C-reactive protein (CRP); U07.1 COVID-19; R06.02 Shortness of breath